=== PATIENT | female | born 2000 | race American Indian/Alaskan Native ===

== ENCOUNTER 2020-11-08 16:11 | Emergency (ER) | payer SELFPAY ==
--- NOTE | 2020-11-08 16:47 | Emergency Department Report ---
Blank Doc - Documentation Documentation: 19-year-old female that presents with lower abdominal pain, nausea and vaginal discharge. 1- This initial assessment/diagnostic orders/clinical plan/ treatment(s) is/are subject to change based on pt's health status, clinical progression and re- assessment by fellow clinical providers in the ED. Further treatment and workup at subsequent clinical provers discretion. Patient/guardians urged not to elope from ED as their condition may be serious if not clinically assessed and managed. 2-labs 3-UA 4-pelvic exam to be performed
[2020-11-08 17:11] LABS: Basophils % (Auto) 0.2 % (0.0-1.8); Eosinophils # (Auto) 0.1 K/mm3 (0.0-0.4); Eosinophils % (Auto) 0.8 % (0.0-4.3); Hematocrit 31.3 % (30.3-42.9); Hemoglobin 10.3 gm/dl (10.1-14.3); Lymphocytes # (Auto) 2.8 K/mm3 (1.2-5.4); Lymphocytes % (Auto) 26.9 % (13.4-35.0); Mean Corpuscular HGB Conc 33 % (30-34); Mean Corpuscular Volume 85 fl (79-97); Monocytes # (Auto) 0.9 K/mm3 (0.0-0.8); Monocytes % (Auto) 8.5 % (0.0-7.3); Platelet Count 320 K/mm3 (140-440); Red Blood Count 3.66 M/mm3 (3.65-5.03); Red Cell Distribution Width 16.5 % (13.2-15.2)
[2020-11-08 17:22] LABS: Alanine Aminotransferase 7 units/L (7-56); Albumin 4.6 g/dL (3.9-5); Blood Urea Nitrogen 9 mg/dL (7-17); Calcium 9.9 mg/dL (8.4-10.2); Hemolysis Index 1
[2020-11-08 17:27] LABS: BUN/Creatinine Ratio 15
[2020-11-08 20:15] VITALS: BP 106/72
--- NOTE | 2020-11-08 20:51 | Emergency Department Report ---
ED Abdominal Pain HPI - General Chief Complaint: Abdominal Pain Stated Complaint: ABDOMINAL PAIN/NO TASTE PUI?: No Time Seen by Provider: 11/08/20 16:46 Source: patient Mode of arrival: Ambulatory Limitations: No Limitations - History of Present Illness Initial Comments: Patient is a 19-year-old female that presents emergency room with complaints of lower abdominal pain, nausea and vaginal discharge. Patient states that her s ymptoms been going on for 3 days. Patient states that her symptoms are worsening. Patient states that the vaginal discharge is clear and mild. Patient states there is no odor to the discharge. Patient states she has nausea almost daily but has only vomited one time in the past 2 weeks. Patient states her nausea is usually in the morning. Patient states her last period was September 05, 2020. Patient states she is sexually active with one partner. Patient states she does not use condoms. Patient states her abdominal pain is a 4 out of 10. Patient states it is worse with palpation and movement. Patient states that her abdominal pain is better with rest and remaining still. Patient denies dysuria. Patient denies fever and chills. Patient denies vaginal bleeding. Patient states she lost her taste October 02, 2020. Patient states it has not returned. Patient denies headache. Patient denies fever and chills. Patient denies recent travel. Patient denies recent international travel. Patient denies exposure to the novel coronavirus. Patient denies sick contacts. Patient denies fever and chills. Patient denies cough. Patient denies diarrhea. Patient denies coming in contact with anybody with symptoms of the novel coronavirus. MD Complaint: abdominal pain -: Sudden Location: LLQ, RLQ, suprapubic Radiation: none Migration to: no migration Severity scale (0 -10): 4 Quality: sharp Consistency: constant Improves With: rest Worsens With: movement Associated Symptoms: nausea, vomiting. denies: diarrhea, fever, chills, constipation, dysuria, hematemesis, hematochezia, melena, hematuria, anorexia, syncope - Related Data Previous Rx's Medication Instructions Recorded Last Taken Type Ondansetron [Zofran Odt] 4 mg PO Q6HR PRN #20 tab.rapdis 11/08/20 Unknown Rx Allergies Allergy/AdvReac Type Severity Reaction Status Date / Time No Known Allergies Allergy Unverified 02/04/21 16:29 ED Review of Systems ROS: Stated complaint: ABDOMINAL PAIN/NO TASTE Other details as noted in HPI Constitutional: denies: chills, fever Eyes: denies: eye pain, eye discharge, vision change ENT: denies: ear pain, throat pain Respiratory: denies: cough, shortness of breath, wheezing Cardiovascular: denies: chest pain, palpitations Endocrine: no symptoms reported Gastrointestinal: abdominal pain, nausea, vomiting. denies: diarrhea, constipation, hematemesis, melena, hematochezia Genitourinary: as per HPI, discharge. denies: urgency, dysuria Musculoskeletal: denies: back pain, joint swelling, arthralgia Skin: denies: rash, lesions Neurological: denies: headache, weakness, paresthesias Psychiatric: denies: anxiety, depression Hematological/Lymphatic: denies: easy bleeding, easy bruising ED Past Medical Hx - Past Medical History Previous Medical History?: No - Surgical History Past Surgical History?: No - Family History Family history: no significant - Social History Smoking Status: Never Smoker Substance Use Type: None - Medications Home Medications: Home Medications Medication Instructions Recorded Confirmed Last Taken Type Ondansetron [Zofran Odt] 4 mg PO Q6HR PRN #20 tab.rapdis 11/08/20 Unknown Rx ED Physical Exam - General Limitations: No Limitations General appearance: alert, in no apparent distress - Head Head exam: Present: atraumatic, normocephalic - Eye Eye exam: Present: normal appearance - ENT ENT exam: Present: mucous membranes moist - Neck Neck exam: Present: normal inspection - Respiratory Respiratory exam: Present: normal lung sounds bilaterally. Absent: respiratory distress - Cardiovascular Cardiovascular Exam: Present: regular rate, normal rhythm. Absent: systolic murmur, diastolic murmur, rubs, gallop - GI/Abdominal GI/Abdominal exam: Present: soft, tenderness (Lower abdominal tenderness, suprapubic tenderness.), normal bowel sounds - Rectal Rectal exam: Present: deferred - External exam: Present: other (Patient refused pelvic exam. ) - Extremities Exam Extremities exam: Present: normal inspection - Back Exam Back exam: Present: normal inspection - Neurological Exam Neurological exam: Present: alert, oriented X3 - Psychiatric Psychiatric exam: Present: normal affect, normal mood - Skin Skin exam: Present: warm, dry, intact, normal color. Absent: rash ED Course Vital Signs 11/08/20 11/08/20 11/08/20 16:30 20:14 20:15 Temperature 98.2 F Pulse Rate 99 H 79 Respiratory 18 14 14 Rate Blood Pressure 106/60 Blood Pressure 106/72 [Left] O2 Sat by Pulse 100 100 100 Oximetry - Reevaluation(s) Reevaluation #1: I discussed all results and clinical findings with patient. I discussed plan of care with patient. Patient agrees with plan of care. Patient is stable for di scharge. Patient will be discharged home. Patient given discharge instructions. Patient voiced understanding of discharge instructions. 11/08/20 23:26 ED Medical Decision Making - Lab Data Result diagrams: 11/08/20 16:49 11/08/20 16:49 - Radiology Data Radiology results: report reviewed TRANSABDOMINAL AND TRANSVAGINAL OB PELVIC ULTRASOUND INDICATION / CLINICAL INFORMATION: Pelvic pain. COMPARISON: None available. FINDINGS: Transabdominal: The uterus measures 10.6 x 8.0 x 8.5 cm. There is a single intrauterine measuring 9 weeks 2 days by crown-rump length. The heart rate is 171 bpm. No implantation hemorrhage is seen. Neither ovary is identified. There is no evidence of adnexal mass or free fluid. Images of the urinary bladder are unremarkable. Transvaginal: There is a single intrauterine with an estimated gestational age of 9 weeks 3 days by crown-rump length. A pole is present. The heart rate is 177 bpm. There is no evidence of implantation hemorrhage. The ovaries were not imaged. IMPRESSION: Single viable 9 week 3 day intrauterine without complication. - Medical Decision Making Patient is a 19-year-old female that presents emergency room with complaints of abdominal pain and amenorrhea and nausea. Patient had labs done which were essentially unremarkable except for an elevated hCG. Patient's quant was elevated. Patient then had an ultrasound. Patient's transvaginal ultrasound shows 9-week IUP. Patient's vaginal discharge is nonodorous and clear. Patient refused to have a pelvic exam. Patient's nausea secondary to morning sickness. Patient will be given Zofran. Patient stable for discharge. Patient disch arged home. Patient given discharge instructions. - Differential Diagnosis Ectopic , , abdominal pain, UTI Critical care attestation.: If time is entered above; I have spent that time in minutes in the direct care of this critically ill patient, excluding procedure time. ED Disposition Clinical Impression: Nausea Abdominal pain Qualifiers: Abdominal location: lower abdomen, unspecified Qualified Code(s): R10.30 - Lower abdominal pain, unspecified Qualifiers: Weeks of gestation: 9 weeks Qualified Code(s): Z3A.09 - 9 weeks gestation of Disposition: DC-01 TO HOME OR SELFCARE Is pt being admited?: No Does the pt Need Aspirin: No Condition: Stable Instructions: Abdominal Pain (ED), Creating a Plan, First Trimester of , [id number], Signs and Symptoms of Labor, Nausea and Vomiting, Adult, Abdominal Pain During , [id number], Nausea and Vomiting, Adult, [id number] Additional Instructions: Patient to follow-up with primary care in 2 to 3 days. Patient to follow-up with [facility] in 2 to 3 days. Patient to rest. Patient to increase water. Patient to avoid strenuous exercise or heavy lifting until cleared by [facility]. Patient to take Tylenol as needed for pain. Patient to start a vitamin.. Patient to return to the ER if condition worsens, changes or new symptoms arise. Prescriptions: Ondansetron [Zofran Odt] 4 mg PO Q6HR PRN #20 tab.rapdis PRN Reason: Nausea And Vomiting Referrals: PRIMARY MD GERALD [Primary Care Provider] - 2-3 Days JOANNA GAFFNEY MD [Staff Physician] - 2-3 Days Time of Disposition: 23:23
[2020-11-08 21:48] LABS: Bilirubin,Urine NEG (Negative); Blood,Urine NEG (Negative); Color,Urine Yellow (Yellow); Mucus,Urine FEW /HPF; Protein,Urine <15 mg/dL mg/dL (Negative)
[2020-11-08 22:00] LABS: HCG Qualitative,Urine Positive (Negative)
--- NOTE | 2020-11-08 22:56 | Ultrasound Report ---
TRANSABDOMINAL AND TRANSVAGINAL OB PELVIC ULTRASOUND INDICATION / CLINICAL INFORMATION: Pelvic pain. COMPARISON: None available. FINDINGS: Transabdominal: The uterus measures 10.6 x 8.0 x 8.5 cm. There is a single intrauterine lowell suring 9 weeks 2 days by crown-rump length. The heart rate is 171 bpm. No implantation hemorrha ge is seen. Neither ovary is identified. There is no evidence of adnexal mass or free fluid. Images o f the urinary bladder are unremarkable. Transvaginal: There is a single intrauterine with an estimated gestational age of 9 weeks 3 days by crown-rump length. A pole is present. The heart rate is 177 bpm. There is no navid dence of implantation hemorrhage. The ovaries were not imaged. IMPRESSION: Single viable 9 week 3 day intrauterine without complication. Signer Name: Bala Baker MD Signed: 11/08/2020 10:52 PM Workstation Name: [id number]
== END 2020-11-08 23:51 | disposition home or self-care (01) ==
LOC: ED 16:11
DX: O26.891 Other specified pregnancy related conditions, first trimester (principal); R10.31 Right lower quadrant pain; R10.32 Left lower quadrant pain; R11.0 Nausea; Z3A.01 Less than 8 weeks gestation of pregnancy; Z79.899 Other long term (current) drug therapy
CPT/HCPCS: 36415; 76801; 76817; 80053; 81001; 81025; 83690; 84702; 84703; 85025

== ENCOUNTER 2022-03-07 16:34 | Outpatient (CLI) | payer MEDICAID ==
[2022-03-07] MEDS ORDERED: LACTATED RINGERS 500 ML IV ONE (17:30)
[2022-03-07] MEDS ORDERED: LACTATED RINGERS 1,000 ML IV SCH ×2 (17:45→19:30)
[2022-03-07 17:46] LABS: Bacteria,Urine 1+ /HPF (Negative); Bilirubin,Urine NEG (Negative); Blood,Urine NEG (Negative); Color,Urine Amber (Yellow); Mucus,Urine 2+ /HPF
[2022-03-07 18:26] LABS: Basophils % (Auto) 0.5 % (0.0-1.8); Eosinophils % (Auto) 0.4 % (0.0-4.3); Hematocrit 23.5 % (30.3-42.9); Hemoglobin 7.3 gm/dl (10.1-14.3); Lymphocytes # (Auto) 1.9 K/mm3 (1.2-5.4); Lymphocytes % (Auto) 22.8 % (13.4-35.0); Mean Corpuscular HGB Conc 31 % (30-34); Mean Corpuscular Volume 74 fl (79-97); Monocytes # (Auto) 1.1 K/mm3 (0.0-0.8); Monocytes % (Auto) 13.6 % (0.0-7.3); Platelet Count 205 K/mm3 (140-440); Red Blood Count 3.18 M/mm3 (3.65-5.03); Red Cell Distribution Width 16.7 % (13.2-15.2)
[2022-03-07 18:47] LABS: Alanine Aminotransferase 8 units/L (7-56); Albumin 3.6 g/dL (3.9-5); Blood Urea Nitrogen 5 mg/dL (7-17); Calcium 8.6 mg/dL (8.4-10.2); Hemolysis Index 0
[2022-03-07 19:04] LABS: BUN/Creatinine Ratio 8
[2022-03-07] MEDS ORDERED: ACETAMINOPHEN 325 MG TAB PO PRN (19:26)
[2022-03-07] MEDS ORDERED: ONDANSETRON 4 MG/2 ML INJ IV PRN (19:26)
[2022-03-07] MEDS ORDERED: LIDOCAINE (2%) 20 MG/1 ML VIAL 20 ML MDV INFILTRATI ONE (19:26)
[2022-03-07] MEDS ORDERED: SODIUM FERRIC GLUCON/SUCRO 125 MG in SODIUM CHLORIDE 0.9% 100 ML IV ONE (19:53)
[2022-03-07] MEDS ORDERED: POTASSIUM CHLORIDE 20 MEQ in LACTATED RINGERS 1,000 ML IV SCH (20:15)
--- NOTE | 2022-03-07 20:27 | History and Physical Report ---
History of Present Illness Date of examination: 03/07/22 Date of admission: Mar 07, 2022 Chief complaint: 21 y/o at 26.3 weeks, RAHUL 06/10/2022, Presents to Labor and delivery with C/O nose bleed and coughing up blood. She does generally not feel well. History of present illness: She has HX of UTI and Chlamydia during the month of February. She was treated for both. Past History Past Medical History: other (Anemia) Past Surgical History: appendectomy [employer] History: chlamydia, gonorrhea, syphilis - Obstetrical History Expected Date of Delivery: 06/10/22 Actual Gestation: 26 Week(s) 3 Day(s) : 2 Para: 1 Hx # Term Pregnancies: 1 Number of Living Children: 1 Medications and Allergies Allergies Allergy/AdvReac Type Severity Reaction Status Date / Time No Known Allergies Allergy Unverified 11/08/20 16:29 Home Medications Medication Instructions Recorded Confirmed Last Taken Type Ondansetron [Zofran Odt] 4 mg PO Q6HR PRN #20 tab.rapdis 11/08/20 Unknown Rx Active Meds: Active Medications Acetaminophen (Acetaminophen 325 Mg Tab) 650 mg PO Q4H PRN PRN Reason: Pain, Mild (1-3) Ferric Sodium Gluconate Complex 125 mg/ Sodium Chloride 110 mls @ 100 mls/hr IV ONCE ONE Stop: 03/07/22 20:58 Potassium Chloride 20 meq/ (Lactated Ringer's) 1,010 mls @ 125 mls/hr IV DIRECT KARYNA Ondansetron HCl (Ondansetron 4 Mg/2 Ml Inj) 4 mg IV Q8H PRN PRN Reason: Nausea And Vomiting Review of Systems Constitutional: chills, fatigue, weakness Eyes: deferred Ears, nose, mouth and throat: deferred Cardiovascular: other (pain in sternal area when coughing) Breasts: deferred Genitourinary: deferred Rectal Exam: deferred Integumentary: deferred - Vital Signs Vital signs: Vital Signs Pulse Pulse Ox 127 H 97 03/07/22 17:00 03/07/22 17:00 Temp Pulse Resp BP Pulse Ox 98.2 F 96 H 18 79/44 98 03/07/22 17:23 03/07/22 20:21 03/07/22 19:13 03/07/22 20:02 03/07/22 20:21 - Physical Exam Breasts: Positive: deferred Cardiovascular: Regular rate Lungs: Positive: Clear to auscultation Abdomen: Positive: normal appearance Genitourinary (Female): Positive: normal external genitalia Vulva: both: normal Vagina: Positive: normal moisture Uterus: Positive: enlarged Deep Tendon Reflex Grade: Normal +2 - Obstetrical FHR: category 1 Uterine Contraction Monitor Mode: External Results Result Diagrams: 03/07/22 18:03 03/07/22 18:03 Abnormal lab results 03/07/22 03/07/22 03/07/22 Range/Units 18:03 18:03 Unknown RBC 3.18 L (3.65-5.03) M/mm3 Hgb 7.3 L (10.1-14.3) gm/dl Hct 23.5 L (30.3-42.9) % MCV 74 L (79-97) fl MCH 23 L (28-32) pg RDW 16.7 H (13.2-15.2) % [place] % (Auto) 13.6 H (0.0-7.3) % [place] # (Auto) 1.1 H (0.0-0.8) K/mm3 Sodium 131 L (137-145) mmol/L Potassium 3.2 L (3.6-5.0) mmol/L Chloride 97.0 L (98-107) mmol/L BUN 5 L (7-17) mg/dL Albumin 3.6 L (3.9-5) g/dL Urine WBC (Auto) 23.0 H (0.0-6.0) /HPF U Epithel Cells (Auto) 46.0 H (0-13.0) /HPF All other labs normal. Assessment and Plan A: Anemia and hypokalemia at 26+ weeks Dehydration P: Covid test - Negative IV Iron LR with 20meq KCL - Patient Problems (1) Anemia affecting in second trimester Current Visit: Yes Status: Acute (2) Hypokalemia Current Visit: Yes Status: Acute
[2022-03-08] MEDS ORDERED: LACTATED RINGERS 1,000 ML IV SCH (08:30)
[2022-03-08] MEDS ORDERED: LACTATED RINGERS 1,000 ML ONE (09:57)
[2022-03-08] MEDS: POTASSIUM CHLORIDE 10 MEQ 10 MEQ/100 ML BAG IV SCH ×2 (11:43→12:56)
[2022-03-08 16:03] VITALS: BP 88/52
--- NOTE | 2022-03-08 16:23 | Progress Note ---
Assessment and Plan A: Anemia and hypokalemia at 26+ weeks Dehydration P: Covid test - Negative IV Iron- given Potassium now 3.8 after 20 meq given Discharge home today F/U in office at next scheduled visit - Patient Problems (1) Anemia affecting in second trimester Current Visit: Yes Status: Acute (2) Hypokalemia Current Visit: Yes Status: Acute Subjective Date of service: 03/08/22 Principal diagnosis: Hypokalemia, anemia Objective - Constitutional Vitals: Vital Signs - 12hr 03/08/22 03/08/22 03/08/22 04:23 04:28 04:31 Temperature Pulse Rate 91 H 96 H 88 Respiratory Rate Blood Pressure O2 Sat by Pulse 89 92 93 Oximetry O2 Sat by Pulse Oximetry [ Bilateral] 03/08/22 03/08/22 03/08/22 04:33 04:38 04:43 Temperature Pulse Rate 89 89 91 H Respiratory Rate Blood Pressure O2 Sat by Pulse 93 93 94 Oximetry O2 Sat by Pulse Oximetry [ Bilateral] 03/08/22 03/08/22 03/08/22 04:48 04:53 04:58 Temperature Pulse Rate 86 90 91 H Respiratory Rate Blood Pressure O2 Sat by Pulse 94 94 96 Oximetry O2 Sat by Pulse Oximetry [ Bilateral] 03/08/22 03/08/22 03/08/22 05:03 05:08 05:09 Temperature Pulse Rate 90 93 H 92 H Respiratory Rate Blood Pressure O2 Sat by Pulse 96 95 94 Oximetry O2 Sat by Pulse Oximetry [ Bilateral] 03/08/22 03/08/22 03/08/22 05:13 05:18 05:23 Temperature Pulse Rate 93 H 92 H 93 H Respiratory Rate Blood Pressure O2 Sat by Pulse 95 96 95 Oximetry O2 Sat by Pulse Oximetry [ Bilateral] 03/08/22 03/08/22 03/08/22 05:28 05:33 05:38 Temperature Pulse Rate 89 89 86 Respiratory Rate Blood Pressure O2 Sat by Pulse 95 97 96 Oximetry O2 Sat by Pulse Oximetry [ Bilateral] 03/08/22 03/08/22 03/08/22 05:43 05:47 05:48 Temperature Pulse Rate 89 90 88 Respiratory Rate Blood Pressure O2 Sat by Pulse 97 94 94 Oximetry O2 Sat by Pulse Oximetry [ Bilateral] 03/08/22 03/08/22 03/08/22 05:53 05:58 06:03 Temperature Pulse Rate 89 89 89 Respiratory Rate Blood Pressure O2 Sat by Pulse 95 95 95 Oximetry O2 Sat by Pulse Oximetry [ Bilateral] 03/08/22 03/08/22 03/08/22 06:08 06:13 06:17 Temperature Pulse Rate 88 85 89 Respiratory Rate Blood Pressure O2 Sat by Pulse 96 96 94 Oximetry O2 Sat by Pulse Oximetry [ Bilateral] 03/08/22 03/08/22 03/08/22 06:18 06:22 06:23 Temperature Pulse Rate 90 91 H 90 Respiratory Rate Blood Pressure O2 Sat by Pulse 95 94 94 Oximetry O2 Sat by Pulse Oximetry [ Bilateral] 03/08/22 03/08/22 03/08/22 06:28 06:31 06:33 Temperature Pulse Rate 96 H 87 90 Respiratory Rate Blood Pressure O2 Sat by Pulse 96 94 95 Oximetry O2 Sat by Pulse Oximetry [ Bilateral] 03/08/22 03/08/22 03/08/22 06:38 06:43 06:48 Temperature Pulse Rate 95 H 102 H 83 Respiratory Rate Blood Pressure O2 Sat by Pulse 95 93 92 Oximetry O2 Sat by Pulse Oximetry [ Bilateral] 03/08/22 03/08/22 03/08/22 06:53 06:58 07:03 Temperature Pulse Rate 88 83 87 Respiratory Rate Blood Pressure O2 Sat by Pulse 93 93 93 Oximetry O2 Sat by Pulse Oximetry [ Bilateral] 03/08/22 03/08/22 03/08/22 07:08 07:13 07:18 Temperature Pulse Rate 87 85 85 Respiratory Rate Blood Pressure O2 Sat by Pulse 93 93 96 Oximetry O2 Sat by Pulse Oximetry [ Bilateral] 03/08/22 03/08/22 03/08/22 07:23 07:28 07:31 Temperature Pulse Rate 86 88 88 Respiratory Rate Blood Pressure O2 Sat by Pulse 93 93 94 Oximetry O2 Sat by Pulse Oximetry [ Bilateral] 03/08/22 03/08/22 03/08/22 07:33 07:36 07:38 Temperature Pulse Rate 88 80 82 Respiratory Rate Blood Pressure O2 Sat by Pulse 94 94 94 Oximetry O2 Sat by Pulse Oximetry [ Bilateral] 03/08/22 03/08/22 03/08/22 07:43 07:48 07:53 Temperature Pulse Rate 88 83 85 Respiratory Rate Blood Pressure O2 Sat by Pulse 94 94 95 Oximetry O2 Sat by Pulse Oximetry [ Bilateral] 03/08/22 03/08/22 03/08/22 07:56 07:58 08:03 Temperature Pulse Rate 85 101 H 115 H Respiratory Rate Blood Pressure O2 Sat by Pulse 94 97 99 Oximetry O2 Sat by Pulse Oximetry [ Bilateral] 03/08/22 03/08/22 03/08/22 08:08 08:13 08:18 Temperature Pulse Rate 126 H 99 H 99 H Respiratory Rate Blood Pressure O2 Sat by Pulse 100 100 99 Oximetry O2 Sat by Pulse Oximetry [ Bilateral] 03/08/22 03/08/22 03/08/22 08:23 08:28 08:33 Temperature Pulse Rate 94 H 92 H 86 Respiratory Rate Blood Pressure O2 Sat by Pulse 99 96 98 Oximetry O2 Sat by Pulse Oximetry [ Bilateral] 03/08/22 03/08/22 03/08/22 08:38 08:43 08:46 Temperature Pulse Rate 88 100 H 94 H Respiratory Rate Blood Pressure O2 Sat by Pulse 97 97 94 Oximetry O2 Sat by Pulse Oximetry [ Bilateral] 03/08/22 03/08/22 03/08/22 08:48 08:53 08:58 Temperature Pulse Rate 89 88 88 Respiratory Rate Blood Pressure O2 Sat by Pulse 97 97 96 Oximetry O2 Sat by Pulse Oximetry [ Bilateral] 03/08/22 03/08/22 03/08/22 09:03 09:04 09:08 Temperature Pulse Rate 92 H 101 H 99 H Respiratory Rate Blood Pressure O2 Sat by Pulse 96 94 96 Oximetry O2 Sat by Pulse Oximetry [ Bilateral] 03/08/22 03/08/22 03/08/22 09:13 09:18 09:23 Temperature Pulse Rate 96 H 93 H 99 H Respiratory Rate Blood Pressure O2 Sat by Pulse 96 96 96 Oximetry O2 Sat by Pulse Oximetry [ Bilateral] 03/08/22 03/08/22 03/08/22 09:28 09:33 09:38 Temperature Pulse Rate 97 H 93 H 97 H Respiratory Rate Blood Pressure O2 Sat by Pulse 95 96 92 Oximetry O2 Sat by Pulse Oximetry [ Bilateral] 03/08/22 03/08/22 03/08/22 09:43 09:44 09:48 Temperature Pulse Rate 96 H 98 H 108 H Respiratory Rate Blood Pressure O2 Sat by Pulse 95 94 95 Oximetry O2 Sat by Pulse Oximetry [ Bilateral] 06/01/2403/08/22 03/08/22 09:52 09:53 09:58 Temperature Pulse Rate 96 H 96 H 96 H Respiratory Rate Blood Pressure O2 Sat by Pulse 94 95 95 Oximetry O2 Sat by Pulse Oximetry [ Bilateral] 03/08/22 03/08/22 03/08/22 10:00 10:03 10:08 Temperature Pulse Rate 104 H 99 H Respiratory Rate Blood Pressure O2 Sat by Pulse 96 94 Oximetry O2 Sat by Pulse 95 Oximetry [ Bilateral] 03/08/22 03/08/22 03/08/22 10:09 10:10 10:11 Temperature 98.6 F Pulse Rate 95 H 96 H 95 H Respiratory 16 Rate Blood Pressure 66/32 68/31 O2 Sat by Pulse 95 Oximetry O2 Sat by Pulse Oximetry [ Bilateral] 03/08/22 03/08/22 03/08/22 10:13 10:15 10:18 Temperature Pulse Rate 96 H 96 H 95 H Respiratory Rate Blood Pressure 82/51 O2 Sat by Pulse 95 94 94 Oximetry O2 Sat by Pulse Oximetry [ Bilateral] 03/08/22 03/08/22 03/08/22 10:22 10:23 10:28 Temperature Pulse Rate 95 H 94 H 97 H Respiratory Rate Blood Pressure O2 Sat by Pulse 94 95 94 Oximetry O2 Sat by Pulse Oximetry [ Bilateral] 03/08/22 03/08/22 03/08/22 10:33 10:38 10:43 Temperature Pulse Rate 93 H 94 H 94 H Respiratory Rate Blood Pressure O2 Sat by Pulse 94 94 95 Oximetry O2 Sat by Pulse Oximetry [ Bilateral] 03/08/22 03/08/22 03/08/22 10:48 10:53 10:58 Temperature Pulse Rate 91 H 95 H 94 H Respiratory Rate Blood Pressure O2 Sat by Pulse 93 94 95 Oximetry O2 Sat by Pulse Oximetry [ Bilateral] 03/08/22 03/08/22 03/08/22 10:59 11:03 11:08 Temperature Pulse Rate 94 H 90 93 H Respiratory Rate Blood Pressure O2 Sat by Pulse 94 96 96 Oximetry O2 Sat by Pulse Oximetry [ Bilateral] 03/08/22 03/08/22 03/08/22 11:13 11:18 11:23 Temperature Pulse Rate 93 H 93 H 89 Respiratory Rate Blood Pressure O2 Sat by Pulse 97 97 96 Oximetry O2 Sat by Pulse Oximetry [ Bilateral] 03/08/22 03/08/22 03/08/22 11:28 11:33 11:38 Temperature Pulse Rate 93 H 101 H 95 H Respiratory Rate Blood Pressure O2 Sat by Pulse 97 97 96 Oximetry O2 Sat by Pulse Oximetry [ Bilateral] 03/08/22 03/08/22 03/08/22 11:43 11:48 11:53 Temperature Pulse Rate 94 H 96 H 115 H Respiratory Rate Blood Pressure O2 Sat by Pulse 97 98 98 Oximetry O2 Sat by Pulse Oximetry [ Bilateral] 03/08/22 03/08/22 03/08/22 11:58 12:03 12:08 Temperature Pulse Rate 114 H 107 H 98 H Respiratory Rate Blood Pressure O2 Sat by Pulse 100 100 100 Oximetry O2 Sat by Pulse Oximetry [ Bilateral] 03/08/22 03/08/22 03/08/22 12:13 12:18 12:23 Temperature Pulse Rate 93 H 93 H 89 Respiratory Rate Blood Pressure O2 Sat by Pulse 97 99 98 Oximetry O2 Sat by Pulse Oximetry [ Bilateral] 03/08/22 03/08/22 03/08/22 12:28 12:33 12:38 Temperature Pulse Rate 90 92 H 102 H Respiratory Rate Blood Pressure O2 Sat by Pulse 98 96 98 Oximetry O2 Sat by Pulse Oximetry [ Bilateral] 03/08/22 03/08/22 03/08/22 12:43 12:48 12:53 Temperature Pulse Rate 101 H 91 H 95 H Respiratory Rate Blood Pressure O2 Sat by Pulse 99 97 98 Oximetry O2 Sat by Pulse Oximetry [ Bilateral] 03/08/22 03/08/22 03/08/22 12:58 13:03 13:08 Temperature Pulse Rate 97 H 98 H 96 H Respiratory Rate Blood Pressure O2 Sat by Pulse 98 98 99 Oximetry O2 Sat by Pulse Oximetry [ Bilateral] 03/08/22 03/08/22 03/08/22 13:13 13:18 13:23 Temperature Pulse Rate 101 H 109 H 102 H Respiratory Rate Blood Pressure O2 Sat by Pulse 100 100 99 Oximetry O2 Sat by Pulse Oximetry [ Bilateral] 03/08/22 03/08/22 03/08/22 13:28 13:33 13:38 Temperature Pulse Rate 101 H 103 H 100 H Respiratory Rate Blood Pressure O2 Sat by Pulse 97 98 96 Oximetry O2 Sat by Pulse Oximetry [ Bilateral] 03/08/22 03/08/22 03/08/22 13:43 13:48 13:50 Temperature Pulse Rate 104 H 100 H 95 H Respiratory Rate Blood Pressure O2 Sat by Pulse 99 100 87 Oximetry O2 Sat by Pulse Oximetry [ Bilateral] 03/08/22 03/08/22 03/08/22 13:53 13:55 13:58 Temperature Pulse Rate 52 L 54 L 71 Respiratory Rate Blood Pressure O2 Sat by Pulse 90 91 25 L Oximetry O2 Sat by Pulse Oximetry [ Bilateral] 03/08/22 03/08/22 03/08/22 14:03 14:07 14:08 Temperature Pulse Rate 47 L 68 Respiratory Rate Blood Pressure O2 Sat by Pulse 49 L 70 L 73 L Oximetry O2 Sat by Pulse Oximetry [ Bilateral] 03/08/22 03/08/22 03/08/22 14:12 14:13 14:18 Temperature Pulse Rate 57 L 70 Respiratory Rate Blood Pressure O2 Sat by Pulse 79 L 93 94 Oximetry O2 Sat by Pulse Oximetry [ Bilateral] 03/08/22 03/08/22 03/08/22 14:24 14:29 14:31 Temperature Pulse Rate 103 H 104 H 30 L Respiratory Rate Blood Pressure O2 Sat by Pulse 90 92 92 Oximetry O2 Sat by Pulse Oximetry [ Bilateral] 03/08/22 03/08/22 03/08/22 14:38 14:39 14:43 Temperature Pulse Rate 77 77 92 H Respiratory Rate Blood Pressure O2 Sat by Pulse 90 89 87 Oximetry O2 Sat by Pulse Oximetry [ Bilateral] 03/08/22 03/08/22 03/08/22 14:44 14:49 14:54 Temperature Pulse Rate Respiratory Rate Blood Pressure O2 Sat by Pulse 88 85 77 L Oximetry O2 Sat by Pulse Oximetry [ Bilateral] 03/08/22 03/08/22 03/08/22 14:56 15:00 15:01 Temperature Pulse Rate 118 H 100 H 105 H Respiratory Rate Blood Pressure 86/48 O2 Sat by Pulse 86 98 Oximetry O2 Sat by Pulse Oximetry [ Bilateral] 03/08/22 03/08/22 03/08/22 15:06 15:11 15:16 Temperature Pulse Rate 98 H 97 H 96 H Respiratory Rate Blood Pressure O2 Sat by Pulse 100 98 100 Oximetry O2 Sat by Pulse Oximetry [ Bilateral] 03/08/22 03/08/22 03/08/22 15:21 15:26 15:31 Temperature Pulse Rate 102 H 102 H 94 H Respiratory Rate Blood Pressure O2 Sat by Pulse 100 100 99 Oximetry O2 Sat by Pulse Oximetry [ Bilateral] 03/08/22 03/08/22 03/08/22 15:36 15:41 15:46 Temperature Pulse Rate 101 H 92 H 99 H Respiratory Rate Blood Pressure O2 Sat by Pulse 98 99 100 Oximetry O2 Sat by Pulse Oximetry [ Bilateral] 03/08/22 03/08/22 03/08/22 15:51 15:56 16:01 Temperature Pulse Rate 93 H 95 H 96 H Respiratory Rate Blood Pressure 88/52 O2 Sat by Pulse 100 100 99 Oximetry O2 Sat by Pulse Oximetry [ Bilateral] 03/08/22 16:06 Temperature Pulse Rate 99 H Respiratory Rate Blood Pressure O2 Sat by Pulse 99 Oximetry O2 Sat by Pulse Oximetry [ Bilateral] General appearance: Present: no acute distress - Neck Neck: supple - Respiratory Respiratory effort: normal Respiratory: bilateral: CTA - Breasts Breasts: deferred - Cardiovascular Rhythm: regular - Gastrointestinal Rectal Exam: deferred - Genitourinary Female genitourinary: deferred - Integumentary Integumentary: clear - Labs CBC & Chem 7: 03/07/22 18:03 03/08/22 15:06 Labs: Abnormal lab results 03/07/22 03/07/22 03/07/22 Range/Units 18:03 18:03 Unknown RBC 3.18 L (3.65-5.03) M/mm3 Hgb 7.3 L (10.1-14.3) gm/dl Hct 23.5 L (30.3-42.9) % MCV 74 L (79-97) fl MCH 23 L (28-32) pg RDW 16.7 H (13.2-15.2) % [place] % (Auto) 13.6 H (0.0-7.3) % [place] # (Auto) 1.1 H (0.0-0.8) K/mm3 Sodium 131 L (137-145) mmol/L Potassium 3.2 L (3.6-5.0) mmol/L Chloride 97.0 L (98-107) mmol/L BUN 5 L (7-17) mg/dL Albumin 3.6 L (3.9-5) g/dL Urine WBC (Auto) 23.0 H (0.0-6.0) /HPF U Epithel Cells (Auto) 46.0 H (0-13.0) /HPF 03/08/22 Range/Units 07:58 RBC (3.65-5.03) M/mm3 Hgb (10.1-14.3) gm/dl Hct (30.3-42.9) % MCV (79-97) fl MCH (28-32) pg RDW (13.2-15.2) % [place] % (Auto) (0.0-7.3) % [place] # (Auto) (0.0-0.8) K/mm3 Sodium (137-145) mmol/L Potassium 3.2 L (3.6-5.0) mmol/L Chloride (98-107) mmol/L BUN (7-17) mg/dL Albumin (3.9-5) g/dL Urine WBC (Auto) (0.0-6.0) /HPF U Epithel Cells (Auto) (0-13.0) /HPF Medications & Allergies - Medications Allergies/Adverse Reactions: Allergies No Known Allergies Allergy (Unverified 11/08/20 16:29) Home Medications: Home Medications Medication Instructions Recorded Confirmed Last Taken Type Ondansetron [Zofran Odt] 4 mg PO Q6HR PRN #20 tab.rapdis 11/08/20 Unknown Rx Active Medications: Generic Name Dose Route Start Last Admin Trade Name Freq PRN Reason Stop Dose Admin Acetaminophen 650 mg 03/07/22 19:26 Acetaminophen 325 Mg Tab PO Q4H PRN Pain, Mild (1-3) Lactated Ringer's 1,000 mls @ 125 mls/hr 03/08/22 08:30 03/08/22 09:00 Lactated Ringers IV 125 mls/hr DIRECT KARYNA Administration Ondansetron HCl 4 mg 03/07/22 19:26 Ondansetron 4 Mg/2 Ml Inj IV Q8H PRN Nausea And Vomiting
--- NOTE | 2022-03-08 16:27 | Discharge Summary ---
Providers - Providers Date of Admission: March 07, 2022 Date of discharge: 03/08/22 Attending physician: RYAN BAILEY Primary care physician: RYAN BAILEY Hospitalization Reason for admission: other (Coughing, nose bleed, hypokalemia, anemia) Discharge diagnosis: other (Anemia, Covid Neg) Hospital course: Was given IV iron and potassium. No further nose bleeds, still congested. Covid test negative Condition at discharge: Good Disposition: 01 HOME / SELF CARE / HOMELESS - Discharge Diagnoses (1) Anemia affecting in second trimester Status: Acute (2) Hypokalemia Status: Acute Plan - Provider Discharge Summary Activity: routine Diet: routine Additional instructions: [] Smoking cessation referral if applicable(refer to patient education folder for contact #) [] Refer to [facility]'s [facility] Booklet Call your doctor immediately for: * Fever > 100.5 * Heavy vaginal bleeding ( >1 pad per hour) * Severe persistent headache * Shortness of breath * Reddened, hot, painful area to leg or breast * Drainage or odor from incision. * Keep incision clean and dry at all times and follow doctor's instructions regarding bathing/showering - Follow up plan Follow up: RYAN BAILEY MD [Primary Care Provider] - 7 Days
== END 2022-03-08 16:52 | disposition home or self-care (01) ==
LOC: APU 16:34 → TRG 16:34 → LD 23:36 → TRG 03-08 16:52
PROVIDERS: ATTEND Obstetrics & Gynecology
DX: O99.012 Anemia complicating pregnancy, second trimester (principal); D64.9 Anemia, unspecified; O26.892 Other specified pregnancy related conditions, second trimester; E86.0 Dehydration; E87.6 Hypokalemia; R04.0 Epistaxis; K92.0 Hematemesis; E55.9 Vitamin D deficiency, unspecified; O23.42 Unspecified infection of urinary tract in pregnancy, second trimester; O98.112 Syphilis complicating pregnancy, second trimester; N39.0 Urinary tract infection, site not specified; Z20.822 Contact with and (suspected) exposure to COVID-19; Z3A.26 26 weeks gestation of pregnancy
CPT/HCPCS: 36415; 80053; 81001; 84132; 85025; 87086; 96361; 96365; 96366; 96368; J2916; J3480; J7120; U0003

== ENCOUNTER 2022-04-10 11:57 | Inpatient (IN) | payer MEDICAID ==
[2022-04-10] MEDS ORDERED: DOCUSATE SODIUM 100 MG CAP PO PRN (16:55)
[2022-04-10] MEDS ORDERED: ACETAMINOPHEN 325 MG TAB PO PRN (16:55)
[2022-04-10] MEDS ORDERED: PRENATAL VIT27-FE FUMARATE-FOLIC ACID VIT TAB PO SCH (17:00)
--- NOTE | 2022-04-10 18:27 | History and Physical Report ---
History of Present Illness Date of examination: 04/10/22 Date of admission: 04/10/22 12:07 04/10/22 Chief complaint: 21/ History of present illness: 21yo EDC 06/10/22 @ 31 2/7 weeks. Patient examined in the office and found to be 2-3 cm dilated Pt. with h/o late delivery. Pt. with h/o syphilis that was adequately treated as per pt. Pt. with h/o anemia. Pt. non compliant with iron meds. Pt. denies any ctx or any LOF. Good FM . 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, syphilis Family/Genetic History: hypertension, cancer Social history: no significant social history - Obstetrical History Expected Date of Delivery: 06/10/22 Actual Gestation: 31 Week(s) 2 Day(s) : 2 Para: 1 Hx # Term Pregnancies: 0 Number of Pregnancies: 1 Spontaneous Abortions: 0 Induced : 0 Number of Living Children: 1 #1 Gender: Female year: Method of Delivery: Vaginal Gestational age at delivery: 36 Complications: none Medications and Allergies Allergies Allergy/AdvReac Type Severity Reaction Status Date / Time No Known Allergies Allergy Unverified 11/08/20 16:29 Home Medications Medication Instructions Recorded Confirmed Last Taken Type Ondansetron [Zofran Odt] 4 mg PO Q6HR PRN #20 tab.rapdis 11/08/20 Unknown Rx Active Meds: Active Medications Acetaminophen (Acetaminophen 325 Mg Tab) 650 mg PO Q4H PRN PRN Reason: Pain MILD(1-3)/Fever >100.5/PEREZ Docusate Sodium (Docusate Sodium 100 Mg Cap) 100 mg PO Q12H PRN PRN Reason: Constipation Multivitamins/Iron/Calcium ( [id number] Fumarate-Folic Acid Vit Tab) 1 each PO QDAY KARYNA Review of Systems All systems: negative - Physical Exam Cardiovascular: Regular rate Lungs: Positive: Clear to auscultation Cervix: Positive: absent Uterus: Positive: enlarged - Obstetrical FHR: category 1 Uterine Contraction Monitor Mode: External Cervical Dilatation: 2 Cervical Effacement Percentage: 0 Uterine Contraction Pattern: Irregular Uterine Tone Measurement Phase: Resting Uterine Contraction Intensity: Mild Results Result Diagrams: 04/10/22 19:26 All other labs normal. Assessment and Plan A IUP @ 31 weeks Advance cervical dilation -Doubt PTL H/o syphilis -Adequately treated Severe Anemia P Celestone Titers 1:1 Pt . does not need treatment . Since treated adequately 2 years ago. Iron studies. [facility] consult Ultrasound order with cervical length FFN done. Contine observation. D/c home if all testing normal.
[2022-04-10 20:29] LABS: Basophils % (Auto) 0.3 % (0.0-1.8); Eosinophils # (Auto) 0.1 K/mm3 (0.0-0.4); Eosinophils % (Auto) 0.8 % (0.0-4.3); Hematocrit 25.1 % (30.3-42.9); Hemoglobin 7.4 gm/dl (10.1-14.3); Lymphocytes # (Auto) 2.7 K/mm3 (1.2-5.4); Lymphocytes % (Auto) 24.7 % (13.4-35.0); Mean Corpuscular HGB Conc 30 % (30-34); Mean Corpuscular Volume 74 fl (79-97); Monocytes # (Auto) 1.2 K/mm3 (0.0-0.8); Platelet Count 191 K/mm3 (140-440); Red Blood Count 3.39 M/mm3 (3.65-5.03); Red Cell Distribution Width 18.5 % (13.2-15.2)
[2022-04-10 21:38] LABS: % Iron Saturation 2.3 %
[2022-04-10] MEDS: BETAMET ACET/BETAMET NA PH 6 MG/ML INJ 5 ML MDV IM SCH (21:39)
--- NOTE | 2022-04-11 00:05 | Ultrasound Report ---
ULTRASOUND OBSTETRIC COMPLETE INDICATION / CLINICAL INFORMATION: Complete US with cervical length. Clinical Gestational Age (GA) in weeks, days: 31 weeks 2 days TECHNIQUE: Transabdominal. COMPARISON: None available FINDINGS: NUMBER: Single PRESENTATION: breech PLACENTA: maternal right and free of the os. No significant abnormality. MATERNAL ADNEXA: No significant abnormality. AMNIOTIC FLUID VOLUME: normal AMNIOTIC FLUID INDEX (MARY) in cm (if measured): 15.6 MEASUREMENTS: - Biparietal Diameter = 8.2 cm = 33 weeks 0 days - Head Circumference = 28.4 cm = 31 weeks 1 day - Abdominal Circumference = 26.9 cm = 31 weeks 0 days - Femur Length = 6.3 cm = 32 weeks 4 days - Estimated Weight (in grams, if calculated): 1811 - Heart Rate (beats per minute): 156 ADDITIONAL FINDINGS: Cervix is suboptimally imaged. Technologist reports a cervical length of 2.4 cm. AVERAGE ULTRASOUND AGE (AUA) in weeks, days = 32 weeks 0 days IMPRESSION: 1. Single intrauterine with AUA of 32 weeks 0 days. 2. Cervix is suboptimally imaged. Technologist reports a cervical length of 2.4 cm. Continued follow- up is suggested. 3. No other significant abnormality. Signer Name: David Schaffer MD Signed: 04/11/2022 12:01 AM Workstation Name: [id number]
[2022-04-11] MEDS ORDERED: SODIUM CHLORIDE 0.9% 500 ML 500 ML IV ONE (01:04)
--- NOTE | 2022-04-11 01:21 | Event Note ---
Date: 04/11/22 CC: contractions vs. Threatened labor HPI: 21-year-old at 31-3/7 weeks gestation is admitted to labor and delivery under antepartum observation status for evaluation management of contractions vs. threatened labor. During a regularly scheduled office visit yesterday, the patient contractions and her cervix was noted be 2 to 3 cm dilated. The patient was referred to OB triage for further evaluation management. fibronectin test was (+). The patient was admitted to labor and delivery under antepartum observation status. OBJECTIVE: NST= reactive TOCO= irregular SVE= 2 cm dilated LABS: Hgb= 7.4 HCT= 25.1 PLT= 191 fFN= (+) GBS Culture= ordered RADIOLOGY: OB US Limited= SLIUP. Vertex. Posterior placenta. EFW= 1811 g (51st %-ile). MARY= 15.6 cm. OB Transvaginal US= cervical length is pending IMPRESSION: 1.) 31 weeks 2.) contractions vs. Threatened labor 3.) Anemia, severe 4.) H/O Syphilis PLAN: 1.) care is up-to-date at [facility] [employer]. 2.) GBS culture was obtained. 3.) glucocorticoids were ordered. The patient received her first dose yesterday. 4.) OB transvaginal ultrasound was ordered to evaluate the cervical length. 5.) Clinically, I suspect that this patient's diagnosis is more likely contractions because she does not have regular and painful uterine contractions that are causing cervical change. 6.) As such, prescribed nifedipine 10 mg p.o. every 6 hours. 7.) For this patient severe anemia, I ordered blood transfusion of 2 units of packed red blood cells. However, this patient ultimately refused to consent. In the interim, ferrous sulfate 325 mg p.o. daily was ordered. 8.) The patient was treated with penicillin for syphilis previously. Her latest titers that were drawn outpatient are 1:1. 9.) Maternal- medicine consultation was ordered already.
[2022-04-11] MEDS: NIFEdipine*For Tocolysis only* 10 MG CAPSULE PO SCH ×2 (01:45→13:25)
--- NOTE | 2022-04-11 06:39 | Ultrasound Report ---
ULTRASOUND OBSTETRIC LIMITED INDICATION / CLINICAL INFORMATION: contractions, short cervix on TA sonog. Clinical Gestational Age (GA) in weeks, days: 31 weeks 2 days TECHNIQUE: Transvaginal. COMPARISON: 04/10/2022 FINDINGS: Limited images of the cervix are performed. Cervix measures 2.7 cm in length. Signer Name: David Schaffer MD Signed: 04/11/2022 6:35 AM Workstation Name: [id number]
[2022-04-11] MEDS ORDERED: FERROUS SULFATE 325 MG TAB PO SCH ×2 (08:00→10:00)
--- NOTE | 2022-04-11 08:37 | Event Note ---
Date: 04/11/22 S: feeling ok O: Hemoglobin 7.4, discussed need for transfusion A: Anemia @ 31.3 weeks PTC P: She agrees to take blood transfusion
[2022-04-11] MEDS ORDERED: SODIUM CHLORIDE 0.9% 1000 ML 1,000 ML ONE (12:58)
[2022-04-11] MEDS: FERROUS SULFATE 325 MG TAB PO SCH (13:01)
[2022-04-11] MEDS ORDERED: ACETAMINOPHEN 325 MG TAB PO PRN (18:12)
[2022-04-11] MEDS: BETAMET ACET/BETAMET NA PH 6 MG/ML INJ 5 ML MDV IM SCH (21:56)
[2022-04-12 01:51] LABS: Basophils % (Auto) 0.1 % (0.0-1.8); Hemoglobin 8.3 gm/dl (10.1-14.3); Lymphocytes # (Auto) 1.6 K/mm3 (1.2-5.4); Lymphocytes % (Auto) 11.5 % (13.4-35.0); Mean Corpuscular HGB Conc 31 % (30-34); Mean Corpuscular Volume 75 fl (79-97); Monocytes % (Auto) 7.3 % (0.0-7.3); Platelet Count 193 K/mm3 (140-440); Red Blood Count 3.62 M/mm3 (3.65-5.03); Red Cell Distribution Width 18.5 % (13.2-15.2)
[2022-04-12] MEDS: NIFEdipine*For Tocolysis only* 10 MG CAPSULE PO SCH (02:32)
--- NOTE | 2022-04-12 07:47 | Event Note ---
Date: 04/12/22 S: Feeling better O: H&H 8.3 and 27.0 after 2 u PRBC's, no contractions, no change in cervix (2-3) on admission, BMZ complete A: IUP @ 31.4 weeks PTC resolved Anemia improved P: Discharge home today Discharge instructions given
--- NOTE | 2022-04-12 07:52 | Discharge Summary ---
Providers - Providers Date of Admission: 04/10/22 12:07 Date of discharge: 04/12/22 Attending physician: SEB WARD MD Primary care physician: SEB WARD MD Hospitalization Reason for admission: other ( contractions, anemia) Hospital course: Presented to Labor and delivery with PTC and anemia. She has dilation at 2-3cm. Stopped alejandro after one dose of Procardia. Received 2 units of PRBC's and H & H now 8.3/27.0. BMZ completed. FFN positive Condition at discharge: Good Disposition: 01 HOME / SELF CARE / HOMELESS Plan - Provider Discharge Summary Activity: other (limited activity) Diet: routine Additional instructions: F/U in one week in the office - Follow up plan Follow up: SEB WARD MD [Primary Care Provider] - 7 Days
[2022-04-12 09:45] VITALS: BP 85/51
[2022-04-12] MEDS ORDERED: PRENATAL VIT27-FE FUMARATE-FOLIC ACID VIT TAB PO SCH (10:00)
[2022-04-12] MEDS: FERROUS SULFATE 325 MG TAB PO SCH (10:27)
== END 2022-04-12 10:45 | disposition home or self-care (01) | DRG 781 ==
LOC: TRG 11:57 → APU 12:00 → TRG 12:06 → LD 12:07
PROVIDERS: ADMIT Obstetrics & Gynecology; ATTEND Obstetrics & Gynecology
PROC: 30233N1 Transfusion of Nonautologous Red Blood Cells into Peripheral Vein, Percutaneous Approach (ICD-10-PCS; principal; 2022-04-11)
DX: O99.013 Anemia complicating pregnancy, third trimester (principal); Z3A.31 31 weeks gestation of pregnancy; Z20.822 Contact with and (suspected) exposure to COVID-19; O62.0 Primary inadequate contractions; O60.03 Preterm labor without delivery, third trimester; Z90.49 Acquired absence of other specified parts of digestive tract
CPT/HCPCS: 36415; 59025; 76805; 76816; 76817; 82731; 83550; 84112; 85025; 86850; 86900; 86901; 86920; 87116; 96372; G0378; J0702; J7030; P9016; U0003

== ENCOUNTER 2022-05-02 12:06 | Outpatient (CLI) | payer MEDICAID ==
[2022-05-02 13:52] LABS: Bacteria,Urine 4+ /HPF (Negative)
[2022-05-02 14:33] LABS: Bilirubin,Urine Negative (Negative); Blood,Urine Small (Negative); Color,Urine Yellow (Yellow); PH,Urine 6.5 (5.0-7.0); Urobilinogen,Urine < 2.0 mg/dL (<2.0)
--- NOTE | 2022-05-02 14:50 | Ultrasound Report ---
ULTRASOUND OBSTETRIC LIMITED ULTRASOUND BIOPHYSICAL PROFILE INDICATION / CLINICAL INFORMATION: Vaginal bleeding. BPP; MARY. - Clinical Gestational Age (GA) in weeks, days: 31, 2 TECHNIQUE: Transabdominal. COMPARISON: None available. FINDINGS: BREATHING MOVEMENT = 2 GROSS BODY MOVEMENT = 2 TONE = 2 QUALITATIVE AMNIOTIC FLUID VOLUME = 2 TOTAL BIOPHYSICAL SCORE = 8/8 HEART RATE (beats per minute): 144 AMNIOTIC FLUID INDEX (cm) = 18.6 (normal = 7-24 cm) PRESENTATION: Cephalic. ADDITIONAL FINDINGS: None. IMPRESSION: 1. Biophysical Score = 8/8 2. MARY 18.6 cm Signer Name: Bala Baker MD Signed: 05/02/2022 2:46 PM Workstation Name: [email or web address]
[2022-05-02 16:10] LABS: Basophils % (Auto) 0.2 % (0.0-1.8); Eosinophils # (Auto) 0.1 K/mm3 (0.0-0.4); Hematocrit 27.8 % (30.3-42.9); Hemoglobin 8.7 gm/dl (10.1-14.3); Lymphocytes # (Auto) 2.4 K/mm3 (1.2-5.4); Lymphocytes % (Auto) 26.4 % (13.4-35.0); Mean Corpuscular HGB Conc 31 % (30-34); Mean Corpuscular Volume 75 fl (79-97); Monocytes # (Auto) 0.8 K/mm3 (0.0-0.8); Monocytes % (Auto) 8.4 % (0.0-7.3); Platelet Count 156 K/mm3 (140-440)
[2022-05-02 16:12] LABS: Red Cell Distribution Width 20.9 % (13.2-15.2)
[2022-05-02 19:04] VITALS: BP 89/54
== END 2022-05-02 19:20 | disposition home or self-care (01) ==
LOC: TRG 12:06 → APU 12:08 → TRG 19:20
PROVIDERS: ATTEND Obstetrics & Gynecology
DX: O26.853 Spotting complicating pregnancy, third trimester (principal); Z3A.34 34 weeks gestation of pregnancy
CPT/HCPCS: 36415; 59025; 76815; 76819; 81001; 84112; 85025; 87086

== ENCOUNTER 2022-05-11 23:17 | Emergency (ER) | payer MEDICAID ==
[2022-05-11 23:39] VITALS: BP 105/68
--- NOTE | 2022-05-12 10:23 | Electrocardiograph Report ---
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
== END 2022-05-12 05:50 | disposition left against medical advice (07) ==
LOC: ED 23:17
DX: M79.18 Myalgia, other site (principal); Z53.21 Procedure and treatment not carried out due to patient leaving prior to being seen by health care provider
CPT/HCPCS: 93005

== ENCOUNTER 2022-05-14 19:55 | Outpatient (CLI) | payer MEDICAID ==
[2022-05-14 20:59] VITALS: BP 93/58
[2022-05-14] MEDS ORDERED: LACTATED RINGERS 1,000 ML ONE (21:18)
[2022-05-14 21:22] LABS: Bilirubin,Urine Negative (Negative); Color,Urine Yellow (Yellow)
[2022-05-14 21:23] LABS: Blood,Urine Negative (Negative); PH,Urine 6.5 (5.0-7.0)
--- NOTE | 2022-05-14 23:28 | Ultrasound Report ---
ULTRASOUND OBSTETRIC LIMITED INDICATION / CLINICAL INFORMATION: Pain. Clinical Gestational Age (GA) in weeks, days: 36 weeks 1 day TECHNIQUE: Transabdominal. COMPARISON: None available. FINDINGS: Single live intrauterine in cephalic presentation with heart rate measuring 144 bpm. measurements correspond to a gestational age of 36 weeks and 1 day. Estimated w eight of 2695 g. Amniotic fluid index is within normal limits, measuring 18.2 cm. IMPRESSION: 1. Single live intrauterine with ultrasound age of 36 weeks and 1 day. Estimated farzad ght of 2695 g. 2. No significant abnormality. 3. Amniotic fluid index is within normal limits, measuring 18.2 cm. Signer Name: Davdi Schaffer MD Signed: 05/14/2022 11:24 PM Workstation Name: [id number]
== END 2022-05-14 23:36 | disposition home or self-care (01) ==
LOC: TRG 19:55 → APU 19:57 → TRG 23:36
PROVIDERS: ATTEND Obstetrics & Gynecology
DX: O26.893 Other specified pregnancy related conditions, third trimester (principal); R10.9 Unspecified abdominal pain; Z3A.36 36 weeks gestation of pregnancy
CPT/HCPCS: 59025; 76816; 81001; 87086